=== PATIENT | female | born 1975 | race Caucasian/White ===

== ENCOUNTER → 2019-01-29 | Outpatient (CLI) | payer OTHER ==
[~2019-01-29] MED LIST: ACEBUTCAFT PO; ACET325; ALBU90OI; ALBU90OI INH; AMLO5; AMLO5 PO; ATEN50; ATOR20 PO; Aldactone100 MG PO; BUDE6HFA; CITA20; CLON.5; CLON1; CLON1 PO; CLON2; CODACE30 PO; CONEST.625; CONEST1.25; Citalopram HBr10 MG PO; DIVA500ER; DOXY100; DULO30; DULO30 PO; ESCI20; ESCI20 PO; ESOM20; ESTR2 PO; EZET10; Esgic Tablet1 EACH PO; FURO20; HYDACE5 PO; HYDCHL12.5; HYDMOR2 PO; HYDROCHLOROTHIAZIDE 12.5 MG; IBUHYD; IBUHYD PO; IBUP800 PO; LABE200; LAMO100 PO; LAMO25; LAMO5; LAMO50; LAMO50 PO; LEVFLO500 PO; LEVSOD100; LIOT25; LISI20; LORA1 PO; LOSA50 PO; LOSHYD100 PO; MAGCHL64ER PO; METDOP250; METO100ER PO; METO50ER; METR500; MICARDIS; MULVITMINE; NAPR500 PO; NIFE60ER; NITR100CA PO; OLAN5A; OMEP20ER PO; OMEP40CA12 PO; OMEPRAZOLE MAGN20 MG PO; OXYACE10; OXYACE5T; OXYACE5T PO; OXYACE7.5T PO; PARO10; PARO20; PENVK500 PO; POTCHL20ER; POTCHL20ER PO; PROBIOTIC1 EAC1 PO; PROM25 PO; Percocet 5-3251 EACH PO; Prednisone20 MG PO; Prilosec Otc20 MG PO; QUET100; QUET200 PO; RANI150; RXHYDACE PO; RXLORA1 PO; RXONDA4ODT MM; RXOXYACE PO; RXPROM25S PR; RXTRAM50 PO; SERT50; SILSUL1TC TOP; SPIR50 PO; SUBOXONE 12 MG1 EACH PO; TELM80; TERB250; THEO300ERC PO; TOPI25; TRAZ50; VALS80; VENL75ER; ZOLP10 PO; [UNRECOGNIZED DRUG - CODE]; [UNRECOGNIZED DRUG - OTHER]; [UNRECOGNIZED DRUG - OTHER]
[2019-01-29 18:01] LABS: BASOPHILS ABSOLUTE AUTO 0.08 K/mm3 (0.00-0.23); BASOPHILS PERCENT AUTO 1 % (0-2); EOSINOPHILS ABSOLUTE AUTO 1.24 K/mm3 (0.00-0.68); EOSINOPHILS PERCENT AUTO 9 % (0-6); Hemoglobin 11.7 g/dL (11.5-16.0); IMMATURE GRAN ABSOLUTE AUTO 0.03 K/mm3 (0.00-0.10); IMMATURE GRAN PERCENT AUTO 0 % (0-1); LYMPHOCYTES ABSOLUTE AUTO 4.31 K/mm3 (0.84-5.20); LYMPHOCYTES PERCENT AUTO 31 % (21-46); MONOCYTES ABSOLUTE AUTO 0.64 K/mm3 (0.16-1.47); MONOCYTES PERCENT AUTO 5 % (4-13); Mean Corpuscular HGB 29.6 pg (26.0-34.0); Mean Corpuscular HGB Conc 34.4 g/dL (31.5-36.5); Mean Corpuscular Volume 86 fL (80-100); Mean Platelet Volume 11.1 fL (9.1-12.4); NEUTROPHILS ABSOLUTE AUTO 7.82 K/mm3 (1.96-9.15); NEUTROPHILS PERCENT AUTO 55 % (41-73); Platelet Count 215 K/mm3 (150-400); RDW Coefficient Variation 12.9 % (11.7-14.2); Red Blood Cell Count 3.95 M/mm3 (3.80-5.20); White Blood Cell Count 14.12 K/mm3 (4.00-11.30)
[2019-01-29 18:16] LABS: Anion Gap 12 mmol/L (6-16); Blood Urea Nitrogen 17 mg/dL (8-24); Bun/Creatinine Ratio 12.5 (12.0-20.0); CO2, Blood 30 mmol/L (21-32); Calcium, Blood 8.8 mg/dL (8.5-10.1); Chloride, Blood 96 mmol/L (98-108); Creatinine, Blood 1.36 mg/dL (0.40-1.00); Glomerular Filtration Rate 42 (60-); Glucose, Blood 97 mg/dL (70-99); Sodium, Blood 138 mmol/L (136-145); Troponin I <0.015 ng/mL (0.000-0.040)
== END | disposition home or self-care (01) ==
LOC: LAB EV 17:58 → LAB SHORT 17:58
PROVIDERS: Family Medicine
DX: R07.89 Other chest pain (principal)
CPT/HCPCS: 80048; 84484; 85025; 85379

== ENCOUNTER → 2019-02-13 | Outpatient (CLI) | payer OTHER ==
[2019-02-13 16:33] LABS: Bun/Creatinine Ratio 8.6 (12.0-20.0); Calcium, Blood 8.8 mg/dL (8.5-10.1); Creatinine, Blood 1.05 mg/dL (0.40-1.00); Potassium, Blood 4.3 mmol/L (3.5-5.5)
== END | disposition home or self-care (01) ==
LOC: LAB EV 16:01 → LAB SHORT 16:01
PROVIDERS: Family Medicine
DX: E87.6 Hypokalemia (principal)
CPT/HCPCS: 80048

== ENCOUNTER 2019-03-02 21:14 | Emergency (ER) | payer OTHER ==
[~2019-03-02] VITALS: Ht 165.1 cm; Wt 81.7 kg
[2019-03-02] MEDS ORDERED: FURO20 PO (22:50)
[2019-03-02] MEDS ORDERED: FLUO10 PO (22:51)
[2019-03-02] MEDS ORDERED: HYDCHL25 PO (22:51)
[2019-03-02] MEDS ORDERED: OMEPRAZOLE MAGN20 MG PO (22:51)
[2019-03-02] MEDS ORDERED: OLAN5 PO (22:52)
[2019-03-02] MEDS ORDERED: BUSP15 PO (22:52)
[2019-03-02] MEDS ORDERED: BUDE6HFA INH (22:52)
[2019-03-02] MEDS ORDERED: ALBU90OI61 INH (22:53)
[2019-03-02 23:02] LABS: BASOPHILS PERCENT AUTO 1 % (0-2); EOSINOPHILS ABSOLUTE AUTO 0.76 K/mm3 (0.00-0.68); EOSINOPHILS PERCENT AUTO 6 % (0-6); Hemoglobin 12.2 g/dL (11.5-16.0); IMMATURE GRAN ABSOLUTE AUTO 0.07 K/mm3 (0.00-0.10); IMMATURE GRAN PERCENT AUTO 1 % (0-1); LYMPHOCYTES ABSOLUTE AUTO 5.72 K/mm3 (0.84-5.20); LYMPHOCYTES PERCENT AUTO 43 % (21-46); MONOCYTES ABSOLUTE AUTO 0.62 K/mm3 (0.16-1.47); MONOCYTES PERCENT AUTO 5 % (4-13); Mean Corpuscular HGB 29.8 pg (26.0-34.0); Mean Corpuscular Volume 91 fL (80-100); Mean Platelet Volume 11.5 fL (9.1-12.4); NEUTROPHILS PERCENT AUTO 46 % (41-73); Platelet Count 256 K/mm3 (150-400); RDW Coefficient Variation 13.9 % (11.7-14.2); RDW Standard Deviation 46.5 fL (35.1-46.3); Red Blood Cell Count 4.09 M/mm3 (3.80-5.20); White Blood Cell Count 13.37 K/mm3 (4.00-11.30)
[2019-03-02 23:23] LABS: Alanine Aminotransfer (ALT/SGP 27 U/L (12-78); Albumin/Globulin Ratio 1.2 (0.8-1.8); Alk Phos 75 U/L (50-136); Anion Gap 9 mmol/L (6-16); Aspartate Aminotrans (AST/SGOT 15 U/L (12-37); Bilirubin, Total 0.2 mg/dL (0.1-1.0); Blood Urea Nitrogen 13 mg/dL (8-24); Bun/Creatinine Ratio 17.1 (12.0-20.0); CO2, Blood 26 mmol/L (21-32); Calcium, Blood 9.2 mg/dL (8.5-10.1); Chloride, Blood 106 mmol/L (98-108); Creatinine, Blood 0.76 mg/dL (0.40-1.00); Ethanol (Alcohol), Blood, Med 119 mg/dL; Globulin, Blood 3.4 g/dL (2.2-4.0); Glomerular Filtration Rate >60 (60-); Glucose, Blood 103 mg/dL (70-99); Potassium, Blood 3.1 mmol/L (3.5-5.5); Salicylate <1.7 mg/dL (2.8-20.0); Sodium, Blood 141 mmol/L (136-145); Total Protein, Blood 7.4 g/dL (6.4-8.2)
[2019-03-02 23:38] LABS: Acetaminophen, Random <2.0 ug/mL (10.0-30.0)
[2019-03-03] MEDS ORDERED: OLAN10 PO (00:13)
== END 2019-03-03 00:13 | disposition home or self-care (01) ==
LOC: ER 21:14
PROVIDERS: Emergency Medicine
DX: F32.9 Major depressive disorder, single episode, unspecified (principal); Z88.2 Allergy status to sulfonamides; Z88.8 Allergy status to other drugs, medicaments and biological substances; Z79.899 Other long term (current) drug therapy; K21.9 Gastro-esophageal reflux disease without esophagitis; J44.9 Chronic obstructive pulmonary disease, unspecified; F31.9 Bipolar disorder, unspecified; F17.210 Nicotine dependence, cigarettes, uncomplicated
CPT/HCPCS: 80053; 84443; 85025; G0480

== ENCOUNTER → 2019-06-05 | Outpatient (CLI) | payer OTHER ==
[~2019-06-05] MED LIST changes: +ALBU90OI61 INH; +BUDE6HFA INH; +BUSP15 PO; +FLUO10 PO; +FURO20 PO; +HYDCHL25 PO; +OLAN10 PO; +OLAN5 PO
[2019-06-05 17:22] LABS: BASOPHILS ABSOLUTE AUTO 0.04 K/mm3 (0.00-0.23); BASOPHILS PERCENT AUTO 1 % (0-2); EOSINOPHILS ABSOLUTE AUTO 0.34 K/mm3 (0.00-0.68); EOSINOPHILS PERCENT AUTO 5 % (0-6); Hematocrit 33.8 % (33.0-51.0); Hemoglobin 11.3 g/dL (11.5-16.0); IMMATURE GRAN ABSOLUTE AUTO 0.03 K/mm3 (0.00-0.10); IMMATURE GRAN PERCENT AUTO 0 % (0-1); LYMPHOCYTES ABSOLUTE AUTO 2.52 K/mm3 (0.84-5.20); LYMPHOCYTES PERCENT AUTO 37 % (21-46); MONOCYTES ABSOLUTE AUTO 0.39 K/mm3 (0.16-1.47); MONOCYTES PERCENT AUTO 6 % (4-13); Mean Corpuscular HGB 29.7 pg (26.0-34.0); Mean Corpuscular HGB Conc 33.4 g/dL (31.5-36.5); Mean Corpuscular Volume 89 fL (80-100); Mean Platelet Volume 11.2 fL (9.1-12.4); NEUTROPHILS ABSOLUTE AUTO 3.49 K/mm3 (1.96-9.15); NEUTROPHILS PERCENT AUTO 51 % (41-73); Platelet Count 189 K/mm3 (150-400); RDW Coefficient Variation 14.2 % (11.7-14.2); RDW Standard Deviation 45.9 fL (35.1-46.3); White Blood Cell Count 6.81 K/mm3 (4.00-11.30)
[2019-06-05 17:39] LABS: Alanine Aminotransfer (ALT/SGP 89 U/L (12-78); Albumin, Blood 3.7 g/dL (3.4-5.0); Alk Phos 87 U/L (40-126); Anion Gap 11 mmol/L (6-16); Aspartate Aminotrans (AST/SGOT 59 U/L (12-37); Bilirubin, Total 0.2 mg/dL (0.1-1.0); Blood Urea Nitrogen 17 mg/dL (8-24); Bun/Creatinine Ratio 14.5 (12.0-20.0); CO2, Blood 26 mmol/L (21-32); Calcium, Blood 8.8 mg/dL (8.5-10.1); Chloride, Blood 98 mmol/L (98-108); Creatinine, Blood 1.17 mg/dL (0.40-1.00); Globulin, Blood 3.7 g/dL (2.2-4.0); Glomerular Filtration Rate 50 (60-); Glucose, Blood 110 mg/dL (70-99); Sodium, Blood 135 mmol/L (136-145); Total Protein, Blood 7.4 g/dL (6.4-8.2)
[2019-06-05 17:40] LABS: Troponin I <0.017 ng/mL (0.000-0.040)
== END | disposition home or self-care (01) ==
LOC: LAB SHORT 17:17 → LAB EV 17:17
PROVIDERS: Physician Assistant
DX: R07.9 Chest pain, unspecified (principal)
CPT/HCPCS: 80053; 83690; 84484; 85025

== ENCOUNTER → 2019-07-03 | Outpatient (CLI) | payer OTHER ==
[2019-07-03 15:47] LABS: BASOPHILS ABSOLUTE AUTO 0.07 K/mm3 (0.00-0.23); BASOPHILS PERCENT AUTO 1 % (0-2); EOSINOPHILS ABSOLUTE AUTO 0.55 K/mm3 (0.00-0.68); EOSINOPHILS PERCENT AUTO 6 % (0-6); Hematocrit 31.5 % (33.0-51.0); Hemoglobin 10.5 g/dL (11.5-16.0); IMMATURE GRAN ABSOLUTE AUTO 0.02 K/mm3 (0.00-0.10); IMMATURE GRAN PERCENT AUTO 0 % (0-1); LYMPHOCYTES ABSOLUTE AUTO 3.36 K/mm3 (0.84-5.20); LYMPHOCYTES PERCENT AUTO 37 % (21-46); MONOCYTES ABSOLUTE AUTO 0.44 K/mm3 (0.16-1.47); MONOCYTES PERCENT AUTO 5 % (4-13); Mean Corpuscular HGB 29.5 pg (26.0-34.0); Mean Corpuscular HGB Conc 33.3 g/dL (31.5-36.5); Mean Corpuscular Volume 89 fL (80-100); Mean Platelet Volume 11.6 fL (9.1-12.4); NEUTROPHILS ABSOLUTE AUTO 4.76 K/mm3 (1.96-9.15); NEUTROPHILS PERCENT AUTO 52 % (41-73); Platelet Count 277 K/mm3 (150-400); RDW Coefficient Variation 13.8 % (11.7-14.2); RDW Standard Deviation 44.6 fL (35.1-46.3); Red Blood Cell Count 3.56 M/mm3 (3.80-5.20)
[2019-07-03 15:50] LABS: Bun/Creatinine Ratio 17.2 (12.0-20.0); Calcium, Blood 8.6 mg/dL (8.5-10.1); Creatinine, Blood 1.22 mg/dL (0.40-1.00); Potassium, Blood 4.1 mmol/L (3.5-5.5)
== END | disposition home or self-care (01) ==
LOC: LAB EV 15:35 → LAB SHORT 15:35
PROVIDERS: Physician Assistant Medical
DX: R94.4 Abnormal results of kidney function studies (principal)
CPT/HCPCS: 80048; 85025

== ENCOUNTER 2019-10-27 15:32 | Observation (INO) | payer OTHER ==
[~2019-10-27] VITALS: Ht 165.1 cm; Wt 83.9 kg
[~2019-10-27 15:32] MED LIST changes: +LOSARTAN POTAS100 MG PO
[2019-10-27] MEDS ORDERED: POTCHL20ER PO (16:10)
[2019-10-27] MEDS ORDERED: ALPR1 PO (16:11)
[2019-10-27] MEDS ORDERED: TRAZ50 PO (16:12)
[2019-10-27] MEDS ORDERED: SEROQUEL100 MG PO (16:13)
[2019-10-27] MEDS ORDERED: MINIPRESS2 MG PO (16:13)
[2019-10-27 16:25] LABS: BASOPHILS ABSOLUTE AUTO 0.05 K/mm3 (0.00-0.23); BASOPHILS PERCENT AUTO 1 % (0-2); EOSINOPHILS ABSOLUTE AUTO 0.29 K/mm3 (0.00-0.68); EOSINOPHILS PERCENT AUTO 3 % (0-6); Hematocrit 39.5 % (33.0-51.0); IMMATURE GRAN ABSOLUTE AUTO 0.02 K/mm3 (0.00-0.10); IMMATURE GRAN PERCENT AUTO 0 % (0-1); LYMPHOCYTES ABSOLUTE AUTO 3.71 K/mm3 (0.84-5.20); LYMPHOCYTES PERCENT AUTO 42 % (21-46); MONOCYTES ABSOLUTE AUTO 0.42 K/mm3 (0.16-1.47); MONOCYTES PERCENT AUTO 5 % (4-13); Mean Corpuscular HGB 28.5 pg (26.0-34.0); Mean Corpuscular HGB Conc 32.9 g/dL (31.5-36.5); Mean Corpuscular Volume 87 fL (80-100); Mean Platelet Volume 11.3 fL (9.1-12.4); NEUTROPHILS ABSOLUTE AUTO 4.41 K/mm3 (1.96-9.15); NEUTROPHILS PERCENT AUTO 50 % (41-73); Platelet Count 288 K/mm3 (150-400); RDW Coefficient Variation 14.6 % (11.7-14.2); RDW Standard Deviation 46.5 fL (35.1-46.3); Red Blood Cell Count 4.56 M/mm3 (3.80-5.20)
[2019-10-27 16:42] LABS: Acetaminophen, Random <2.0 ug/mL (10.0-30.0); Alanine Aminotransfer (ALT/SGP 89 U/L (12-78); Albumin, Blood 4.2 g/dL (3.4-5.0); Albumin/Globulin Ratio 1.1 (0.8-1.8); Alk Phos 89 U/L (50-136); Anion Gap 11 mmol/L (6-16); Aspartate Aminotrans (AST/SGOT 51 U/L (12-37); Bilirubin, Total 0.1 mg/dL (0.1-1.0); Blood Urea Nitrogen 14 mg/dL (8-24); Bun/Creatinine Ratio 16.2 (12.0-20.0); CO2, Blood 21 mmol/L (21-32); Calcium, Blood 8.9 mg/dL (8.5-10.1); Chloride, Blood 112 mmol/L (98-108); Creatinine, Blood 0.87 mg/dL (0.40-1.00); Ethanol (Alcohol), Blood, Med 166 mg/dL; Globulin, Blood 3.7 g/dL (2.2-4.0); Glomerular Filtration Rate >60 (60-); Glucose, Blood 93 mg/dL (70-99); Potassium, Blood 3.5 mmol/L (3.5-5.5); Salicylate <1.7 mg/dL (2.8-20.0); Sodium, Blood 144 mmol/L (136-145); Total Protein, Blood 7.9 g/dL (6.4-8.2)
[2019-10-27 17:06] LABS: Source, Urine Clean Catch
[2019-10-27 17:18] LABS: Bilirubin, Urine Neg (Neg); Blood, Urine Neg (Neg); Glucose Qualitative, Urine Neg (Neg); Ketones, Urine Neg (Neg); Leukocyte Esterase, Urine Neg (Neg); Nitrite, Urine Neg (Neg); Protein, Urine Neg (Neg); Specific Gravity, Urine 1.005 (1.003-1.022); Urobilinogen, Urine NORM (Normal)
[2019-10-27 17:34] LABS: U Amphetamine Screen Not Detected; U Barbituate Screen Not Detected; U Benzodiazapine Screen Not Detected; U Buprenorphine Screen Not Detected; U Cannabinoids Screen DETECTED; U Cocaine Screen Not Detected; U Methadone Screen Not Detected; U Methamphetamine Screen Not Detected; U Opiates Screen Not Detected; U Oxycodone Screen Not Detected; U Phencyclidine Screen Not Detected; U Propoxyphene Screen Not Detected
[2019-10-27 17:35] LABS: Appearance, Urine Clear (Clear); Color, Urine Pale Yellow (P-Yellow)
[2019-10-27] MEDS ORDERED: NEURONTIN300 MG PO (18:05)
[2019-10-27] MEDS ORDERED: QUET300 PO (18:05)
[2019-10-27] MEDS ORDERED: Buspirone HCl15 MG PO (18:06)
[2019-10-27] MEDS ORDERED: POTASSIUM CHLO20 ME1 PO (18:06)
[2019-10-28] MEDS ORDERED: HYDCHL25 PO (06:58)
== END 2019-10-28 12:45 | disposition home or self-care (01) ==
LOC: ER 15:32 → EOR 15:33
PROVIDERS: Physician Assistant; ADMIT Emergency Medicine
DX: F31.4 Bipolar disorder, current episode depressed, severe, without psychotic features (principal); F12.10 Cannabis abuse, uncomplicated; F11.10 Opioid abuse, uncomplicated; F10.10 Alcohol abuse, uncomplicated; R45.851 Suicidal ideations; F17.210 Nicotine dependence, cigarettes, uncomplicated; I11.0 Hypertensive heart disease with heart failure; I50.9 Heart failure, unspecified; J43.9 Emphysema, unspecified; F43.10 Post-traumatic stress disorder, unspecified; F41.9 Anxiety disorder, unspecified; G43.909 Migraine, unspecified, not intractable, without status migrainosus; E78.5 Hyperlipidemia, unspecified; E03.9 Hypothyroidism, unspecified; Z88.1 Allergy status to other antibiotic agents; Z88.2 Allergy status to sulfonamides; Z88.8 Allergy status to other drugs, medicaments and biological substances; Z79.899 Other long term (current) drug therapy; Y90.6 Blood alcohol level of 120-199 mg/100 ml
CPT/HCPCS: 36415; 80053; 81003; 81025; 84443; 85025; 96372; 99285; G0378; G0480; J1885; Q0163; Q3014

== ENCOUNTER → 2020-05-21 | Outpatient (CLI) | payer OTHER ==
[~2020-05-21] MED LIST changes: +ALPR.5 PO; +AMLODIPINE BESYL5 MG PO; +Ativan1 MG SL; +BUTALB-ACETAMI1 EAC5 PO; +Buspirone HCl15 MG PO; +CLON.1 PO; +CYCL10 PO; -FLUO10 PO; +Fluoxetine HCl20 M1 PO; +GABA300 PO; +Hydroxyzine HCl50 MG PO; +NEURONTIN300 MG PO; +POTASSIUM CHLO20 ME1 PO; +PRAZ5 PO; +QUET300 PO; +SEROQUEL100 MG PO; +TRAZ50 PO; +Temazepam15 MG PO; +VRAYLAR1.5 MG PO; +ZOFRAN8 MG PO
[2020-05-21 16:08] LABS: Source, Urine Clean Catch
[2020-05-21 16:23] LABS: BASOPHILS ABSOLUTE AUTO 0.06 K/mm3 (0.00-0.23); BASOPHILS PERCENT AUTO 1 % (0-2); EOSINOPHILS ABSOLUTE AUTO 0.29 K/mm3 (0.00-0.68); EOSINOPHILS PERCENT AUTO 3 % (0-6); Hematocrit 34.7 % (33.0-51.0); Hemoglobin 11.8 g/dL (11.5-16.0); IMMATURE GRAN ABSOLUTE AUTO 0.03 K/mm3 (0.00-0.10); IMMATURE GRAN PERCENT AUTO 0 % (0-1); LYMPHOCYTES ABSOLUTE AUTO 2.37 K/mm3 (0.84-5.20); LYMPHOCYTES PERCENT AUTO 23 % (21-46); MONOCYTES ABSOLUTE AUTO 0.61 K/mm3 (0.16-1.47); MONOCYTES PERCENT AUTO 6 % (4-13); Mean Corpuscular HGB 30.8 pg (26.0-34.0); Mean Corpuscular Volume 91 fL (80-100); Mean Platelet Volume 11.8 fL (9.1-12.4); NEUTROPHILS ABSOLUTE AUTO 7.02 K/mm3 (1.96-9.15); NEUTROPHILS PERCENT AUTO 68 % (41-73); Platelet Count 255 K/mm3 (150-400); RDW Coefficient Variation 14.1 % (11.7-14.2); RDW Standard Deviation 46.8 fL (35.1-46.3); Red Blood Cell Count 3.83 M/mm3 (3.80-5.20); White Blood Cell Count 10.38 K/mm3 (4.00-11.30)
[2020-05-21 16:34] LABS: Albumin, Blood 4.6 g/dL (3.4-5.0); Albumin/Globulin Ratio 1.2 (0.8-1.8); Bilirubin, Total 0.4 mg/dL (0.1-1.0); Bun/Creatinine Ratio 11.4 (12.0-20.0); Creatinine, Blood 4.74 mg/dL (0.40-1.00); Globulin, Blood 3.7 g/dL (2.2-4.0); Potassium, Blood 4.2 mmol/L (3.5-5.5); Total Protein, Blood 8.3 g/dL (6.4-8.2)
[2020-05-21 16:36] LABS: Bacteria Not Seen /hpf; Mucus Light (0-Heavy); Red Blood Cells, Urine 0-2 /hpf (0-2); Squamous Epithelial Cells Few /hpf (Few)
== END | disposition home or self-care (01) ==
LOC: LAB EV 16:04 → LAB SHORT 16:04
PROVIDERS: Physician Assistant
DX: R06.00 Dyspnea, unspecified (principal); R55 Syncope and collapse; R31.9 Hematuria, unspecified
CPT/HCPCS: 80053; 81015; 83880; 85025; 85379; 87086

== ENCOUNTER → 2020-06-08 | Outpatient (CLI) | payer OTHER ==
[2020-06-08 19:06] LABS: Protein, Urine Quantitative 10.7 mg/dL (0.0-11.9)
[2020-06-08 19:08] LABS: Microalbumin, Urine Quant. 21.3 mg/L (0.000-20.000)
== END | disposition home or self-care (01) ==
LOC: LAB SHORT 15:13 → LAB 15:13
PROVIDERS: Internal Medicine Nephrology
DX: N18.3 Chronic kidney disease, stage 3 (moderate) (principal); D63.1 Anemia in chronic kidney disease; N25.81 Secondary hyperparathyroidism of renal origin; E55.9 Vitamin D deficiency, unspecified; E78.00 Pure hypercholesterolemia, unspecified; D51.8 Other vitamin B12 deficiency anemias; D52.8 Other folate deficiency anemias; D50.9 Iron deficiency anemia, unspecified; R76.9 Abnormal immunological finding in serum, unspecified; R94.5 Abnormal results of liver function studies; R94.6 Abnormal results of thyroid function studies
CPT/HCPCS: 81050; 82043; 84156; 84300; 86335

== ENCOUNTER 2020-07-25 20:37 | Inpatient (IN) | payer OTHER ==
[~2020-07-25] VITALS: Ht 170.2 cm; Wt 92.1 kg
[2020-07-25 20:53] LABS: BASOPHILS ABSOLUTE AUTO 0.04 K/mm3 (0.00-0.23); BASOPHILS PERCENT AUTO 1 % (0-2); EOSINOPHILS ABSOLUTE AUTO 0.18 K/mm3 (0.00-0.68); EOSINOPHILS PERCENT AUTO 2 % (0-6); Hematocrit 37.3 % (33.0-51.0); Hemoglobin 12.4 g/dL (11.5-16.0); IMMATURE GRAN ABSOLUTE AUTO 0.02 K/mm3 (0.00-0.10); IMMATURE GRAN PERCENT AUTO 0 % (0-1); LYMPHOCYTES ABSOLUTE AUTO 3.69 K/mm3 (0.84-5.20); LYMPHOCYTES PERCENT AUTO 42 % (21-46); MONOCYTES ABSOLUTE AUTO 0.48 K/mm3 (0.16-1.47); MONOCYTES PERCENT AUTO 5 % (4-13); Mean Corpuscular HGB 30.4 pg (26.0-34.0); Mean Corpuscular HGB Conc 33.2 g/dL (31.5-36.5); Mean Corpuscular Volume 91 fL (80-100); Mean Platelet Volume 11.2 fL (9.1-12.4); NEUTROPHILS ABSOLUTE AUTO 4.46 K/mm3 (1.96-9.15); NEUTROPHILS PERCENT AUTO 50 % (41-73); Platelet Count 233 K/mm3 (150-400); RDW Coefficient Variation 15.8 % (11.7-14.2); RDW Standard Deviation 52.1 fL (35.1-46.3); Red Blood Cell Count 4.08 M/mm3 (3.80-5.20); White Blood Cell Count 8.87 K/mm3 (4.00-11.30)
[2020-07-25] MEDS ORDERED: Ativan1 MG SL (21:06)
[2020-07-25 21:10] LABS: Alanine Aminotransfer (ALT/SGP 60 U/L (12-78); Albumin, Blood 3.4 g/dL (3.4-5.0); Albumin/Globulin Ratio 0.8 (0.8-1.8); Alk Phos 91 U/L (50-136); Anion Gap 14 mmol/L (6-16); Aspartate Aminotrans (AST/SGOT 55 U/L (12-37); Bilirubin, Total 0.3 mg/dL (0.1-1.0); Blood Urea Nitrogen 6 mg/dL (8-24); Bun/Creatinine Ratio 5.9 (12.0-20.0); CO2, Blood 21 mmol/L (21-32); Calcium, Blood 8.6 mg/dL (8.5-10.1); Chloride, Blood 105 mmol/L (98-108); Creatinine, Blood 1.01 mg/dL (0.40-1.00); Ethanol (Alcohol), Blood, Med 165 mg/dL; Glomerular Filtration Rate >60 (60-); Glucose, Blood 135 mg/dL (70-99); Potassium, Blood 2.9 mmol/L (3.5-5.5); Salicylate <1.7 mg/dL (2.8-20.0); Sodium, Blood 140 mmol/L (136-145); Total Protein, Blood 7.4 g/dL (6.4-8.2)
[2020-07-25 21:16] LABS: Acetaminophen, Random <2.0 ug/mL (10.0-30.0)
[2020-07-25] MEDS ORDERED: QUET300 PO (21:42)
[2020-07-25] MEDS ORDERED: PRAZ5 PO (21:44)
[2020-07-26 00:46] LABS: U Amphetamine Screen Not Detected; U Barbituate Screen Not Detected; U Benzodiazapine Screen DETECTED; U Buprenorphine Screen Not Detected; U Cannabinoids Screen DETECTED; U Cocaine Screen Not Detected; U Methadone Screen Not Detected; U Methamphetamine Screen DETECTED; U Opiates Screen Not Detected; U Oxycodone Screen Not Detected; U Phencyclidine Screen Not Detected; U Propoxyphene Screen Not Detected
--- NOTE | 2020-07-26 01:18 | NUR ---
ARRIVAL TO ICU 0000 - PT ARRIVES FROM ED TO ICU AT THIS TIME. SHE IS SOMNOLENT, AWAKENS SUDDENLY, AND SPEAKS IN GARBLED SPEECH THAT IS INCOMPREHENSIBLE. DENIES PAIN WHEN ASKED. [facility], HR 100-110. BP WNL; SEE TRENDS. SPO2 98% ON RA. LUNG SOUNDS CLEAR. MOE CATHETER INSERTED AT ARRIVAL; URINE TOX SENT TO LAB. PT PLACED IN PAPER SCRUBS AND PLACED ON HIGH SUICIDE WATCH WITH CAMERAS AND 1:1 SITTER. LACERATION TO L FOREARM WITH 6 SUTURES PRESENT; PHOTOS OBTAINED. WILL CONTINUE TO MONITOR.
[2020-07-26 03:37] LABS: BASOPHILS ABSOLUTE AUTO 0.02 K/mm3 (0.00-0.23); BASOPHILS PERCENT AUTO 0 % (0-2); EOSINOPHILS ABSOLUTE AUTO 0.07 K/mm3 (0.00-0.68); EOSINOPHILS PERCENT AUTO 1 % (0-6); Hematocrit 37.2 % (33.0-51.0); Hemoglobin 12.2 g/dL (11.5-16.0); IMMATURE GRAN ABSOLUTE AUTO 0.04 K/mm3 (0.00-0.10); IMMATURE GRAN PERCENT AUTO 1 % (0-1); LYMPHOCYTES ABSOLUTE AUTO 2.76 K/mm3 (0.84-5.20); LYMPHOCYTES PERCENT AUTO 33 % (21-46); MONOCYTES ABSOLUTE AUTO 0.64 K/mm3 (0.16-1.47); MONOCYTES PERCENT AUTO 8 % (4-13); Mean Corpuscular HGB 30.3 pg (26.0-34.0); Mean Corpuscular HGB Conc 32.8 g/dL (31.5-36.5); Mean Corpuscular Volume 92 fL (80-100); Mean Platelet Volume 10.8 fL (9.1-12.4); NEUTROPHILS ABSOLUTE AUTO 4.79 K/mm3 (1.96-9.15); NEUTROPHILS PERCENT AUTO 58 % (41-73); Platelet Count 226 K/mm3 (150-400); RDW Coefficient Variation 15.7 % (11.7-14.2); RDW Standard Deviation 52.9 fL (35.1-46.3); Red Blood Cell Count 4.03 M/mm3 (3.80-5.20); White Blood Cell Count 8.32 K/mm3 (4.00-11.30)
--- NOTE | 2020-07-26 03:59 | NUR ---
HANDOFF BEDSIDE, HANDOFF REPORT GIVEN TO MAGDA Samuel RN. PT SLEEPING. VSS.
--- NOTE | 2020-07-26 04:00 | NUR ---
ASSUMED CARE OF PT, SHE HAS PERIODS OF SOMNOLENCE FOLLOWED BY SUDDEN PERIODS OF WAKENING DURING WHICH MUMBLED SPEECH IS NOTED, UNABLE TO UNDERSTAND WORDS AT THIS TIME. SINUS TACH ON MONITOR, PRESSURES MAINTAINING. SATS UPPER 90S ON ROOM AIR, RESP RATE TEENS. ALIYAH VEST RESTRAINT AND BILAT WRIST RESTRAINTS IN PLACE. AT TIMES WHEN PT'S EYES ARE OPEN, IT DOES APPEAR THAT SHE IS HAVING VISUAL HALLUCINATIONS SHE TRACKS MOVEMENT IN ROOM THAT IS NOT VISIBLE TO THIS RN.
[2020-07-26 04:02] LABS: Alanine Aminotransfer (ALT/SGP 56 U/L (12-78); Albumin, Blood 3.5 g/dL (3.4-5.0); Alk Phos 91 U/L (50-136); Anion Gap 9 mmol/L (6-16); Aspartate Aminotrans (AST/SGOT 41 U/L (12-37); Bilirubin, Total 0.4 mg/dL (0.1-1.0); Blood Urea Nitrogen 5 mg/dL (8-24); Bun/Creatinine Ratio 6.3 (12.0-20.0); CO2, Blood 24 mmol/L (21-32); Calcium, Blood 8.7 mg/dL (8.5-10.1); Chloride, Blood 109 mmol/L (98-108); Creatinine, Blood 0.79 mg/dL (0.40-1.00); Globulin, Blood 3.6 g/dL (2.2-4.0); Glomerular Filtration Rate >60 (60-); Glucose, Blood 118 mg/dL (70-99); Potassium, Blood 3.2 mmol/L (3.5-5.5); Sodium, Blood 142 mmol/L (136-145); Total Protein, Blood 7.1 g/dL (6.4-8.2)
--- NOTE | 2020-07-26 06:22 | NUR ---
PT CONTINUES SOMNOLENT WITH SUDDEN PERIODS OF WAKENING DURING WHICH TIMES SHE LIFTS BUTTOCKS AND SCOOTS AROUND BED, APPEARS TO WATCH MOVEMENT IN ROOM, AND MUMBLE INCOHERENTLY. SHE RARELY MAKES EYE CONTACT WITH THIS RN AT TIMES OF INCREASED WAKEFULNESS. SINUS TACH CONTINUES, PRESSURES REMAIN STABLE. SHE CONTINUES TO MAINTAIN SATS UPPER 90S ON ROOM AIR, RESP RATE TEENS. MOE REMAINS IN PLACE DRAINING YELLOW URINE TO GRAVITY, INCREASING SEDIMENT IS NOTED IN TUBING. AM POTASSIUM NOTED AT 3.[address] RES[address] PHONED TO DR CASTRO, ORDERED IV POTASSIUM IS CURRENTLY INFUSING.
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
[2020-07-26 10:16] LABS: Source, Urine Catheter
[2020-07-26 10:19] LABS: Appearance, Urine Clear (Clear); Bilirubin, Urine Neg (Neg); Blood, Urine Neg (Neg); Color, Urine Yellow (P-Yellow); Glucose Qualitative, Urine Neg (Neg); Ketones, Urine Neg (Neg); Leukocyte Esterase, Urine 1+ (Neg); Nitrite, Urine Neg (Neg); Protein, Urine 2+ (Neg); Specific Gravity, Urine 1.025 (1.003-1.022); Urobilinogen, Urine NORM (Normal)
[2020-07-26 10:35] LABS: Amorphous Light (0-Heavy); Bacteria Mod /hpf; Red Blood Cells, Urine 0-2 /hpf (0-2); Squamous Epithelial Cells Few /hpf (Few)
--- NOTE | 2020-07-26 11:32 | NUR ---
PT IS UNABLE TO ANSWER QUESTIONS AT THIS TIME, WILL CONTINUE TO MONITOR AND ASSESS THE PT.
--- NOTE | 2020-07-26 13:57 | NUR ---
PT UPDATE... PT WOKE UP AND WAS VERY AGITATED, PT BEGAN TO KICK HER LEGS VIGORUSLY AROUND THE BED AND WAS ATTEMPTING TO CLIMB OUT OF BED. PT WAS ABLE TO TELL THIS RN THAT SHE WAS IN [facility] AND THAT SHE HAD TRIED TO "KILL MYSELF." PT VERBALIZED THAT SHE NO LONGER HAD THESE FEELINGS OF WANTING TO END HER LIFE AND THAT SHE DID NOT HAVE A PLAN. PT CONTINUES TO KICK HER LEGS AROUND, THIS SEEMS TO INCREASE HER AGITATION, PT TOLD THIS RN THAT SHE HAS RESTLESS LEG SYNDROME AND "ITS REALLY BAD RIGHT NOW." THE PROVIDER WAS CALLED AND UPDATED ON PT'S CURRENT STATE AND LAB/UA RESULTS. NEW ORDERS OBTAINED FOR ANTIBIOTICS, AND HYDROXIZINE PO. PT HAS HAD TEARFUL MOMENTS BUT IT IS HARD TO UNDERSTAND EXACTLY WHAT SHE IS SAYING BECAUSE HER SPEECH IS STILL SOMEWHAT GARBLED. WILL CONTINUE TO MONITOR.
[2020-07-26 13:59] LABS: Magnesium, Blood 2.2 mg/dL (1.6-2.4); Potassium, Blood 3.6 mmol/L (3.5-5.5)
--- NOTE | 2020-07-26 14:04 | NUR ---
PT VERBALIZES THAT SHE DID ATTEMPT TO TAKE HER LIFE BUT NO LONGER HAS ANY THOUGHTS OR PLANS OF ATTEMPTING SUICIDE AT THIS TIME.
--- NOTE | 2020-07-26 15:26 | NUR ---
PT UPDATE.... PT HAS INCREASING AGITATION, INCREASED TREMORS NOTED TO THE PT'S HANDS/ARMS. PT'S BP IS TRENDING UP WITH THE AGIATION. PT IS BECOMING INCREASINGLY EMOTIONAL/TEARFUL BUT HARD TO UNDERSTAND DUE TO THE GARBLED SPEECH. PER TIRE CENTER SUPERVISOR THE PT STATED "WHERE DID THEY GO?" WHEN THE TIRE CENTER SUPERVISOR ASKED WHO "THEY" WHERE AND REORIENTED THE PT THE PT THEN SAID "OH I GUESS I WAS JUST HALLUCINATING." WILL CONTINUE TO MONITOR.
--- NOTE | 2020-07-26 18:22 | NUR ---
SHIFT SUMMARY... PT'S AGITATION AND CONFUSION CONTINUES TO INCREASE T/O SHIFT. PROVIDER IS AWARE, CWIA PROTOCOL ORDERS OBTAINED. PT HAS BEEN HYPERTENSIVE OFF AND ON T/O THIS SHIFT. CWIA HAS BEEN 15-17. IV ATIVAN HAS BEEN GIVEN PER ORDERS, PT STILL CONTINUES TO BE AGITATED, PULL AT THE RESTRAINTS AND IV TUBES/MOE. PROVIDER CALLED AGAIN AND NEW ORDER FOR PRECEDEX DRIP OBTAINED. PT WAS ALSO GIVEN IV HYDRALAZINE FOR HYPERTENSION, SHE RESPONDED WELL TO THIS. THIS RN SPOKE WITH THE PT'S S.O. MIREILLE, SHE STATED THAT THE PT DRINKS 0.5-1 PINT OF WHISKY A DAY WELL 4-6 24 OZ MIKES HARDER LEMONAIDES. PT'S UA WAS SENT FOR C&S EMPERIC ROCEPHIN WAS STARTED PER ORDERS UNTIL CULTURES COME BACK. CONSULT WAS PLACED FOR DR. SALAS AND 2MD HOLD OBTAINED. PT REMAINS ON RA WITH O2 SATS >92%. PT ALSO REMAINS ON 1:1 HIGH RISK SUICIDE AND REMOTE VIEWING. PT'S QTc IS CURRENTLY: 0.506 AN IMPROVEMENT FROM THIS AM WHEN IT WAS 0.52. WILL CONTINUE TO MONITOR UNTIL REPORT IS GIVEN TO ONCOMING RN.
--- NOTE | 2020-07-26 19:21 | NUR ---
ASSUMPTION OF CARE PT LYING IN BED, MILDLY RESTLESS, PRECEDEX RECENTLY STARTED ON PREVIOUS SHIFT. O2 SATURATIONS> 95% ON RA, MONITOR SHOWS SINUS RHYTHM WITH HR 90'S-110, HYPERTENSIVE WITH SBP 150'S-160'S. PT IN ALIYHA VEST AND BILAT SOFT WRIST TO PROTECTS LINES/CORDS AND PREVENT FALLS, PER REPORT FROM DAYSHIFT PT VERY IMPULSIVE AND MADE SEVERAL ATTEMPTS TO GET OUT OF BED. MOE IN PLACE DRAINING CLOUDY YELLOW URINE. BANANA BAD INF @ 200ml/HR, PRECEDEX INF @ 13.8ml/hr. ONE ON ONE SITTER PRESENT FOR CONTINUOUS VISUAL MONITORING.
--- NOTE | 2020-07-26 20:00 | NUR ---
COLUMBIA SUICIDE SCALE ASSESSMENT PT UNABLE TO ANSWER QUESTIONS AT THIS TIME DUE TO SEDATION ON PRECEDEX. PT RESTING IN BED, AROUSES TO VERBAL AND NOXIOUS STIMULI. 1:1 SITTER PRESENT OUTSIDE ROOM FOR CONTINUOUS MONITORING.
--- NOTE | 2020-07-26 22:14 | NUR ---
PT CONTINUES TO BE AROUSABLE TO VERBAL STIMULI, ASKED PT IF SHE KNEW WHERE SHE WAS, PT STS "YES" BUT WAS UNABLE TO STATE LOCATION. PT CONTINUES TO MAKE MINIMAL SHIFTS/REPOSITIONS IN BED. PRECEDEX CONTINUES OT INFUSE, 1:1 SITTER PRESENT.
[2020-07-27 03:34] LABS: BASOPHILS ABSOLUTE AUTO 0.05 K/mm3 (0.00-0.23); BASOPHILS PERCENT AUTO 1 % (0-2); EOSINOPHILS ABSOLUTE AUTO 0.51 K/mm3 (0.00-0.68); EOSINOPHILS PERCENT AUTO 6 % (0-6); IMMATURE GRAN ABSOLUTE AUTO 0.02 K/mm3 (0.00-0.10); IMMATURE GRAN PERCENT AUTO 0 % (0-1); LYMPHOCYTES ABSOLUTE AUTO 3.05 K/mm3 (0.84-5.20); LYMPHOCYTES PERCENT AUTO 34 % (21-46); MONOCYTES PERCENT AUTO 5 % (4-13); Mean Corpuscular HGB 30.5 pg (26.0-34.0); Mean Corpuscular HGB Conc 32.4 g/dL (31.5-36.5); Mean Corpuscular Volume 94 fL (80-100); Mean Platelet Volume 11.2 fL (9.1-12.4); NEUTROPHILS ABSOLUTE AUTO 4.94 K/mm3 (1.96-9.15); NEUTROPHILS PERCENT AUTO 55 % (41-73); Platelet Count 223 K/mm3 (150-400); RDW Coefficient Variation 15.8 % (11.7-14.2); RDW Standard Deviation 54.5 fL (35.1-46.3); Red Blood Cell Count 3.94 M/mm3 (3.80-5.20); White Blood Cell Count 8.97 K/mm3 (4.00-11.30)
[2020-07-27 03:53] LABS: Alanine Aminotransfer (ALT/SGP 68 U/L (12-78); Albumin/Globulin Ratio 0.9 (0.8-1.8); Alk Phos 85 U/L (50-136); Anion Gap 6 mmol/L (6-16); Aspartate Aminotrans (AST/SGOT 71 U/L (12-37); Bilirubin, Total 0.3 mg/dL (0.1-1.0); Blood Urea Nitrogen 5 mg/dL (8-24); Bun/Creatinine Ratio 6.9 (12.0-20.0); CO2, Blood 23 mmol/L (21-32); Calcium, Blood 7.9 mg/dL (8.5-10.1); Chloride, Blood 109 mmol/L (98-108); Creatinine, Blood 0.72 mg/dL (0.40-1.00); Globulin, Blood 3.5 g/dL (2.2-4.0); Glomerular Filtration Rate >60 (60-); Glucose, Blood 120 mg/dL (70-99); Potassium, Blood 3.4 mmol/L (3.5-5.5); Sodium, Blood 138 mmol/L (136-145); Total Protein, Blood 6.5 g/dL (6.4-8.2)
--- NOTE | 2020-07-27 07:17 | NUR ---
SHIFT SUMMARY NO ACUTE CHANGES THIS SHIFT, PT SLEPT WELL T/O NIGHT. PRECEDEX TITRATED TO 0.3mcg/kg/hr, PT BECAME MORE ALERT AND ORIENTED TO SELF, KNEW SHE WAS IN THE HOSPITAL BUT THOUGH SHE WAS IN [facility], KNEW SHE TOOK TOO MANY PILLS BUT HAD NO RECOLLECTION OF HOW SHE ARRIVED TO THE HOSPITAL, CIWA 1 R/T MILD NAUSEA. MORNING LAB SHOWED POTASSIUM OF 3.4, ORDER FOR 20meq KCL IV x1. HYPERTENSION NOTED THIS SHIFT, MEDICATED WITH 20MG HYDRALAZINE x1. 1:1 REMAINED AT ROOM T/O SHIFT. REPORT GIVEN TO WANDA ALFRED.
--- NOTE | 2020-07-27 09:52 | NUR ---
AM NOTE... ASSUMED CARE OF PT APROX 0700, PT IS A&Ox4 CURRENLTY ON PRECEDEX AT 0.3 MCG/KG/HR, PT WAKES EASILY AND ANSWERS QUESTIONS APPROPRIATELY, PT SEEMS A LITTLE ANXIOUS BUT NOT AGRESSIVE LIKE SHE WAS YESTERDAY, PT IS NOT PULLING ON LINES OR HER MOE AND IS NOT ATTEMPTING TO CLIMB OUT OF BED. PT STATES THAT SHE IS NOT SUICIDAL AND DOES NOT HAVE ANY PLANS TO HARM HERSELF OR OTHERS. PT IS TEARFUL AT TIMES WELL THIS AM. L/S CLEAR T/O ON RA. BT PRESENT PT ASKING ABOUT BREAKFAST, DIET WAS ORDERED AT THIS TIME. NO EDEMA NOTED ON ASSESSMENT. CALL LIGHT IN REACH, SITTER AT THE BEDSIDE WILL CONTINUE TO MONITOR.
--- NOTE | 2020-07-27 14:01 | NUR ---
Interview atttemped for safety Plan 1000. Pt was cooperative, but kept losing train of thought on what she was rlaying. Pt was unsure how she got to hosptial, and affirmed she had OD'd. She was concerned her 15 y/o daughter had found her, but did not know. She did report that saskia,, "I remember she (saskia) was saying bad things to me". 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 Interview was delayed to allow patient to eat breakfast and rest. Will return in afternoon.
--- NOTE | 2020-07-27 17:29 | NUR ---
Initial spiritual care note: uLz was tired. Visit kept short. She tells me she recently lost her favorite [facility] alcohol [facility] drug counselor and "It's just too much to think about starting all over with someone new." "I have impulse control issues." She has two daughters and a partner she loves. She admits she made a mistake trying to end her life. She is mostly worried that "everyone is mad at me." Quite quickly she told me she was now too tired to talk. Visit ended at that point. I will remain available.
--- NOTE | 2020-07-27 18:20 | NUR ---
SHIFT SUMMARY... PT'S HIGH RISK SUICIDE WAS D/C'D APROX [address] SALAS PT'S 2MD HOLD STILL IN EFFECT. PT IS VERY EMOTIONAL AND TEARFUL ABOUT NOT BEING ABLE TO D/C HOME AT THIS TIME. PT HAS BEEN SLIGHTLY HYPERTENSIVE THIS SHIFT, PT WAS STARTED ON METOPROLOL PER PROVIDER THIS AM. PT'S OTHER VS STABLE T/O SHIFT. PT'S S.O. WAS AT THE BEDSIDE APROX 1 HOUR THIS AM. PT'S MOE PATENT AND DRAINING YELLOW URINE WITH SOME SEDIMENT TO GRAVITY. PT HAS BEEN ALLOWED TO MAKE A FEW PHONE CALLS TO FAMILY AFTER THE HOLD WAS DROPPED. CALL LIGHT IN REACH WILL CONTINUE TO MONITOR.
--- NOTE | 2020-07-27 19:30 | NUR ---
ASSUMED PT CARE REPORT AND BEDSIDE ROUNDING WITH ROMERO ALFRED AT 1910. ASSUMED PT CARE. PT ALERT AND ORIENTED. SITTING UP IN BED WATCHING TV. PT PROVIDED WITH GOWN PER REQUEST (SHE IS NO LONGER ON SUICIDE PRECATIONS). PT LUNG SOUNDS ARE CLEAR, SATS >92% ON RA. DENIES SOB. PT ON AUTOMOTIVE ACCESSORY INSTALLER HR 90S, SINUS. ABD SOFT AND NON-TENDER, GOOD APPETITE. PT DENIES NAUSEA. PATENT MOE DRAINING YELLOW URINE. SKIN C/D/I. LAC TO LEFT FA WITH SUTURES NOTED, NEW TEGADERM PLACED. DRESSINGS TO IVS CHANGED. 18G TO LEFT AC, WNL, 20G TO RIGHT FA, WNL. BANANA BAG INFUSING @ 200ML/HR (MAINT FLUIDS TO RESUME AFTER). PT DENIES PAIN, DENIES SI. BP WNL. SEE FULL SHIFT ASSESSMENT.
[2020-07-28 04:16] LABS: Alanine Aminotransfer (ALT/SGP 89 U/L (12-78); Albumin/Globulin Ratio 0.9 (0.8-1.8); Alk Phos 88 U/L (50-136); Anion Gap 8 mmol/L (6-16); Aspartate Aminotrans (AST/SGOT 99 U/L (12-37); Bilirubin, Total 0.3 mg/dL (0.1-1.0); Blood Urea Nitrogen 7 mg/dL (8-24); CO2, Blood 23 mmol/L (21-32); Calcium, Blood 8.2 mg/dL (8.5-10.1); Chloride, Blood 108 mmol/L (98-108); Creatinine, Blood 0.87 mg/dL (0.40-1.00); Globulin, Blood 3.5 g/dL (2.2-4.0); Glomerular Filtration Rate >60 (60-); Glucose, Blood 114 mg/dL (70-99); Potassium, Blood 3.8 mmol/L (3.5-5.5); Sodium, Blood 139 mmol/L (136-145); Total Protein, Blood 6.5 g/dL (6.4-8.2)
--- NOTE | 2020-07-28 06:14 | NUR ---
SHIFT SUMMARY PT REMAINED ALERT AND ORIENTED. CIWA <8 THROUGHOUT SHIFT. PT ON RA, SATS >92%. PT DENIES SOB. LUNG SOUNDS CLEAR. FICTION AND NONFICTION PROSE WRITER SHOWS NSR-ST. PT DENIES CP. BP STABLE, PT REQUIRED HYDRALAZINE TWICE DURING SHIFT FOR SBP >160. PT HAD [place], MEDICATED WITH ADVIL. PT TOLERATES PO. BS WNL. DENIES NAUSEA. DENIES SI. ABHI WEBB THIS AM. 18G TO LEFT AC NOTED, DRESSING C/D/I. 20G TO RIGHT FA WITH D51/2NS c 20MEQ KCL INFUSING @ 75ML/HR. PT MOVES ALL EXTREMITIES. PT COULD STATUS CHANGE TODAY. WILL REPORT TO ONCOMING RN.
--- NOTE | 2020-07-28 07:51 | NUR ---
ASSUMED CARE RECEIVED REPORT FROM AUBRIE BAKER. PT IS IN BED COMPLAINING OF HEADACHE. SHE IS ALERT AND ORIENTED X 4, SHE APPEARS DEPRESSED. STABLE VITALS, WITH ELEVATED BP - 164/104. PT IS IN SINUS RHYTHM RATE OF 90. ROOM AIR. BED IS LOW AND LOCKED. CALL LIGHT WITHIN REACH.
--- NOTE | 2020-07-28 09:56 | NUR ---
UPDATE PT VERY TEARFUL, SLIGHTLY AGITATED, AND SAD THAT SHE IS HERE. SHE REALLY WANTS TO LEAVE, BUT AFTER INFORMING HER THAT SHE IS STILL ON A HOLD AND THAT THE DECISION FOR HER TO LEAVE IS UP TO THE DOCTORS, SHE STARTED CRYING AND SAYING SHE HATES IT HERE. BP SLIGHTLY ELEVATED, BUT I GAVE 20 MG OF HYDRALAZINE. BED LOW AND LOCKED. CALL LIGHT WITHIN REACH.
--- NOTE | 2020-07-28 10:11 | NUR ---
Suicide Safety Plan completed with patient at 0730 today. Pt able to identify she was impulsive, and had not been planning an OD. Denied SI currently, and wants to re-engage in mental health treatment with [facility] and med provider at [facility]. Will also explore AA meetings. Ptient agreed to interventions of moving meds to have them less accessible, or to have her assist. Case Management notified for DC planning to assist patient in re-connecting with [facility] and [facility] for f/u mental health treatment, and also [facility] intensive outpatient treatment. Patient reports will investigate women's AA group to attend. Carlton Singh M.Ed., [facility]
[2020-07-28] MEDS ORDERED: Prozac20 MG PO (13:29)
[2020-07-28] MEDS ORDERED: LAMOTRIGINE ODT50 MG PO (13:31)
[2020-07-28] MEDS ORDERED: METO50 PO (13:32)
== END 2020-07-28 13:50 | disposition home or self-care (01) | DRG 918 ==
LOC: ER 20:37 → ICUW 20:38
PROVIDERS: Internal Medicine; Physician Assistant; ADMIT Internal Medicine
DX: T43.592A Poisoning by other antipsychotics and neuroleptics, intentional self-harm, initial encounter (principal); F10.239 Alcohol dependence with withdrawal, unspecified; F31.81 Bipolar II disorder; I50.30 Unspecified diastolic (congestive) heart failure; T44.6X2A Poisoning by alpha-adrenoreceptor antagonists, intentional self-harm, initial encounter; R82.81 Pyuria; E87.6 Hypokalemia; G43.909 Migraine, unspecified, not intractable, without status migrainosus; G44.89 Other headache syndrome; K21.9 Gastro-esophageal reflux disease without esophagitis; J44.9 Chronic obstructive pulmonary disease, unspecified; E03.9 Hypothyroidism, unspecified; F19.10 Other psychoactive substance abuse, uncomplicated; E66.9 Obesity, unspecified; F17.290 Nicotine dependence, other tobacco product, uncomplicated; E78.5 Hyperlipidemia, unspecified; I11.0 Hypertensive heart disease with heart failure; Z78.1 Physical restraint status; Z68.31 Body mass index [BMI] 31.0-31.9, adult
CPT/HCPCS: 36415; 51702; 80053; 81001; 83735; 84132; 84443; 85025; 87086; 93005; 93010; 96365; 96366; 96367; 99285-25; A9270; A9270-GY; C9113; G0480; J0360; J0696; J1650; J2060; J2405; J3411; J3475; J3480; J7030; J7042; J7050; Q0177

== ENCOUNTER 2020-08-12 11:13 | Emergency (ER) | payer OTHER ==
[~2020-08-12 11:13] MED LIST changes: +LAMOTRIGINE ODT50 MG PO; +METO50 PO; +Prozac20 MG PO
[2020-08-15] MEDS ORDERED: POTCHL20ER PO (05:39)
[2020-08-15] MEDS ORDERED: AMLO5 PO (05:40)
[2020-08-15] MEDS ORDERED: CLON.1 PO (05:40)
[2020-08-15] MEDS ORDERED: HYDR10 PO (05:40)
[2020-08-15] MEDS ORDERED: Buspirone HCl30 MG PO (05:41)
[2020-08-15] MEDS ORDERED: Alprazolam1 MG PO (05:41)
[2020-08-15] MEDS ORDERED: HYDCHL25 PO (05:41)
[2020-08-15] MEDS ORDERED: OLANZAPINE20 M2 PO (05:41)
[2020-08-15] MEDS ORDERED: FISH OIL 1,2001 EAC7 PO (05:42)
[2020-08-15] MEDS ORDERED: NEURONTIN300 MG PO (05:42)
[2020-08-15] MEDS ORDERED: VENLAFAXINE HC225 MG PO (05:43)
[2020-08-15] MEDS ORDERED: Hydroxyzine HCl50 MG (05:43)
[2020-08-15] MEDS ORDERED: MAGNESIUM OXID400 M3 PO (05:43)
[2020-08-15] MEDS ORDERED: Ventolin/Prove6.7 GM INH (05:44)
[2020-08-15] MEDS ORDERED: BUTALB-ACETAMI1 EAC5 PO (05:44)
[2020-08-15] MEDS ORDERED: TRAM50 PO (06:53)
[2020-08-15] MEDS ORDERED: IBUP800 PO (06:53)
[2020-08-15] MEDS ORDERED: CRUTCH2 XX (06:54)
== END 2020-08-12 11:27 | disposition left against medical advice (07) ==
LOC: ER 11:13
DX: Z53.21 Procedure and treatment not carried out due to patient leaving prior to being seen by health care provider (principal)

== ENCOUNTER 2020-08-16 07:53 | Emergency (ER) | payer OTHER ==
[~2020-08-16] VITALS: Ht 165.1 cm; Wt 90.7 kg
[~2020-08-16 07:53] MED LIST changes: +Alprazolam1 MG PO; +Buspirone HCl30 MG PO; +CRUTCH2 XX; +FISH OIL 1,2001 EAC7 PO; +HYDR10 PO; +Hydroxyzine HCl50 MG; +MAGNESIUM OXID400 M3 PO; +OLANZAPINE20 M2 PO; +TRAM50 PO; +VENLAFAXINE HC225 MG PO; +Ventolin/Prove6.7 GM INH
[2020-08-16] MEDS ORDERED: Norco 5-325 Ta1 EACH PO (09:53)
== END 2020-08-16 10:05 | disposition home or self-care (01) ==
LOC: ER 07:53
DX: S93.401A Sprain of unspecified ligament of right ankle, initial encounter (principal); F31.9 Bipolar disorder, unspecified; E78.5 Hyperlipidemia, unspecified; I10 Essential (primary) hypertension; E03.9 Hypothyroidism, unspecified; Z88.0 Allergy status to penicillin; Z88.1 Allergy status to other antibiotic agents; Z79.899 Other long term (current) drug therapy; Z88.2 Allergy status to sulfonamides; X50.1XXA Overexertion from prolonged static or awkward postures, initial encounter
CPT/HCPCS: 73630; 99283-25

== ENCOUNTER 2020-09-02 16:01 | Emergency (ER) | payer OTHER ==
[~2020-09-02] VITALS: Ht 165.1 cm; Wt 95.2 kg
[~2020-09-02 16:01] MED LIST changes: +Norco 5-325 Ta1 EACH PO
== END 2020-09-02 18:01 | disposition home or self-care (01) ==
LOC: ER 16:01
DX: S81.812A Laceration without foreign body, left lower leg, initial encounter (principal); F31.9 Bipolar disorder, unspecified; E78.5 Hyperlipidemia, unspecified; E03.9 Hypothyroidism, unspecified; I10 Essential (primary) hypertension; F17.290 Nicotine dependence, other tobacco product, uncomplicated; Z23 Encounter for immunization; Z87.442 Personal history of urinary calculi; Z79.899 Other long term (current) drug therapy; W27.2XXA Contact with scissors, initial encounter
CPT/HCPCS: 12032; 90471; 90714; 99282-25

== ENCOUNTER → 2021-09-27 | Outpatient (CLI) | payer OTHER ==
[~2021-09-27] MED LIST changes: +CEPH500 PO
== END | disposition home or self-care (01) ==
LOC: LAB SHORT 18:45
DX: L08.9 Local infection of the skin and subcutaneous tissue, unspecified (principal)
CPT/HCPCS: 87070; 87077; 87186; 87205

== ENCOUNTER 2022-09-15 10:26 | Inpatient (IN) | payer OTHER ==
[~2022-09-15] VITALS: Ht 165.1 cm; Wt 85.2 kg
[~2022-09-15 10:26] MED LIST changes: +CITALOPRAM HBR20 M8
[2022-09-15 11:13] LABS: BASOPHILS ABSOLUTE AUTO 0.13 K/mm3 (0.00-0.23); BASOPHILS PERCENT AUTO 1 % (0-2); EOSINOPHILS PERCENT AUTO 0 % (0-6); Hematocrit 49.2 % (33.0-51.0); Hemoglobin 15.5 g/dL (11.5-16.0); IMMATURE GRAN ABSOLUTE AUTO 0.19 K/mm3 (0.00-0.10); IMMATURE GRAN PERCENT AUTO 1 % (0-1); LYMPHOCYTES ABSOLUTE AUTO 4.91 K/mm3 (0.84-5.20); LYMPHOCYTES PERCENT AUTO 27 % (21-46); MONOCYTES PERCENT AUTO 4 % (4-13); Mean Corpuscular HGB 30.1 pg (26.0-34.0); Mean Corpuscular HGB Conc 31.5 g/dL (31.5-36.5); Mean Corpuscular Volume 96 fL (80-100); Mean Platelet Volume 12.7 fL (9.1-12.4); NEUTROPHILS ABSOLUTE AUTO 12.47 K/mm3 (1.96-9.15); NEUTROPHILS PERCENT AUTO 68 % (41-73); Platelet Count 394 K/mm3 (150-400); RDW Coefficient Variation 13.3 % (11.7-14.2); RDW Standard Deviation 47.3 fL (35.1-46.3); Red Blood Cell Count 5.15 M/mm3 (3.80-5.20)
[2022-09-15 12:52] LABS: Magnesium, Blood 2.8 mg/dL (1.6-2.4)
[2022-09-15 12:59] LABS: Albumin, Blood 4.1 g/dL (3.4-5.0); Albumin/Globulin Ratio 0.9 (0.8-1.8); Bilirubin, Total 0.6 mg/dL (0.1-1.0); Bun/Creatinine Ratio 15.3 (12.0-20.0); Calcium, Blood 9.8 mg/dL (8.5-10.1); Creatinine, Blood 1.24 mg/dL (0.40-1.00); Globulin, Blood 4.8 g/dL (2.2-4.0); Potassium, Blood 5.2 mmol/L (3.5-5.5); Total Protein, Blood 8.9 g/dL (6.4-8.2)
[2022-09-15 14:25] LABS: Base Excess Venous -30.6 mmol/L; Bicarbonate Venous 5.3 mmol/L (24.0-30.0); pH Blood Venous 6.84 (7.34-7.37)
[2022-09-15 15:21] LABS: Triglycerides 2120 mg/dL (30-160)
[2022-09-15 15:48] LABS: Source, Urine Clean Catch
[2022-09-15 15:51] LABS: Glucose, Blood 728 mg/dL (70-99)
[2022-09-15 15:54] LABS: Appearance, Urine Clear (Clear); Bilirubin, Urine Neg (Neg); Blood, Urine 3+ (Neg); Color, Urine Yellow (P-Yellow); Glucose Qualitative, Urine 4+ (Neg); Ketones, Urine 4+ (Neg); Leukocyte Esterase, Urine 1+ (Neg); Nitrite, Urine Neg (Neg); Protein, Urine 3+ (Neg); Specific Gravity, Urine 1.015 (1.003-1.022); Urobilinogen, Urine NORM (Normal)
[2022-09-15 16:09] LABS: Bacteria Mod /hpf; Hyaline Casts 0-2 /lpf (0-2); Squamous Epithelial Cells Mod /hpf (Few); Yeast/Fungi Urine Rare /hpf
[2022-09-15 16:11] LABS: SARS-Cov-2 (COVID-19) PCR, MMC NEGATIVE (NEGATIVE)
[2022-09-15 16:23] LABS: U Amphetamine Screen Not Detected; U Barbituate Screen Not Detected; U Benzodiazapine Screen Not Detected; U Buprenorphine Screen Not Detected; U Cannabinoids Screen DETECTED; U Cocaine Screen Not Detected; U Methadone Screen Not Detected; U Methamphetamine Screen Not Detected; U Opiates Screen DETECTED; U Oxycodone Screen Not Detected; U Phencyclidine Screen Not Detected; U Propoxyphene Screen Not Detected
[2022-09-15 16:25] LABS: Base Excess Venous -29.2 mmol/L; PCO2 Venous 21.3 mmHg (38-42); pH Blood Venous 6.88 (7.34-7.37)
[2022-09-15 16:46] LABS: Bun/Creatinine Ratio 17.9 (12.0-20.0); Calcium, Blood 8.2 mg/dL (8.5-10.1); Creatinine, Blood 1.06 mg/dL (0.40-1.00); Potassium, Blood 5.2 mmol/L (3.5-5.5)
[2022-09-15 17:45] LABS: Glucose, Blood 482 mg/dL (70-99)
--- NOTE | 2022-09-15 18:31 | NUR ---
SUMMARY: POLLO ARRIVED FROM THE EMERGENCY DEPT JUST AFTER 1700, SHE IS A&O, COOPERATIVE AND HELPFUL IN ANSWERING QUESTIONS TO COMPLETE HER ADMISSION HISTORY AND ASSE- SSMENT. SHE ARRIVES WITH PIV IN RIGHT FA AND ONE IN LEFT AC. LR @ 350 BEGAN PER ORDER AND INSULIN GTT AT 4U/HR. INITIAL CHEM BG IS READING HI AND LAB COMES TO DRAW, RETURNS WITH 482. INSULIN STAYS @ 4U, R/T IV ACCESS BEING MADE FOR EASIER ACCESS TO LAB DRAWS, CHEM BG'S AND IV FLUIDS. CHARGE RNS IN ROOM DOING THE IV. PT IS NAUSEATED, IS PAINFUL TO THE RIGHT KNEE WHICH IS SCHEDULED FOR REPLACEMENT NEXT MONTH. SHE IS MEDICATED FOR PAIN AND NAUSEA. LEFT PIV BEGINS TO BE POSITIONAL AND LINES ARE SWITCHED TO RIGHT FOREARM. PT STATES SHE HAS NEVER FELT LIKE SHE DID TODAY, SHE HAS BEEN HAVING INCREASED THIRST, [place], UNINTENTIONAL WEIGHT LOSS OVER THE LAST MONTH. SHE STATES SHE HAS NEVER HAD AN ISSUE WITH HER BLOOD SUGARS BEFORE. IS SURPRISED TO LEARN OF THE DIAGNOSIS. SHE RECENTLY QUIT SMOKING (IN FEBRUARY) SO THAT SHE COULD HAVE HER SURGERY. SHE ADMITS TO USING A VAPE BUT DENIES THE USE OF TOBACCO, ADMITS TO THC AND CBD USAGE. PT CONTINUES WITH THE PLACEMENT OF THE EXTENDED DWELL CATHETER. SEE ADMISSION FOR FURTHER INFORMATION.
--- NOTE | 2022-09-15 19:15 | NUR ---
ASSESSMENT/ASSUMED CARE PT SITTING UP IN BED WATCHING TV. C/O PAIN / TO RIGHT KNEE AND LEFT FOOT. PT TO HAVE SURGERY TO RIGHT KNEE IN SEPTEMBER. PT MED WITH FENTANYL 50 MCQ. PAIN DOWN TO 5/10. LUNGS CLEAR ON ROOMAIR. RESP EVEN AND NONLABORED. DENIES SOB OR COUGH. STATES,"I HAD SOB EARLIER TODAY, BUT IT IS MUCH BETTER NOW". HEART RATE TACHY 103. BP STABLE. NO EDEMA. MAEW. C/O TINGELING TO FEET, BUT NO NUMBNESS. BT+ ABD SOFT AND TENDER. C/O NAUSEA STATES,"THE NAUSEA IS MUCH BETTER AFTER THE MEDS THEY GAVE ME". PT TAKING ICE CHIPS. IV 18G TO LEFT AC FLUSHED WITHOUT DIFFICULTY, SITE CLEAR. IV 18G TO RIGHT FOREARM WITH LR AT 350 ML/HR AND INSULIN GTT AT 2 UNITS/HR. SITE CLEAR. PT MOVING AND TURNING SELF IN BED.
--- NOTE | 2022-09-15 20:52 | NUR ---
NAUSEA PT C/O NAUSEA. TO EARLIER FOR REGLAN. CALL TO DR CAREY FOR ZOFRAN. ORDER OBTAINED
[2022-09-15 21:53] LABS: Bun/Creatinine Ratio 21.3 (12.0-20.0); Calcium, Blood 8.2 mg/dL (8.5-10.1); Creatinine, Blood 0.7 mg/dL (0.40-1.00); Potassium, Blood 4.8 mmol/L (3.5-5.5)
[2022-09-16 02:19] LABS: BASOPHILS ABSOLUTE AUTO 0.02 K/mm3 (0.00-0.23); BASOPHILS PERCENT AUTO 0 % (0-2); EOSINOPHILS PERCENT AUTO 0 % (0-6); Hematocrit 30.8 % (33.0-51.0); Hemoglobin 10.8 g/dL (11.5-16.0); IMMATURE GRAN ABSOLUTE AUTO 0.09 K/mm3 (0.00-0.10); IMMATURE GRAN PERCENT AUTO 1 % (0-1); LYMPHOCYTES ABSOLUTE AUTO 2.21 K/mm3 (0.84-5.20); LYMPHOCYTES PERCENT AUTO 15 % (21-46); MONOCYTES ABSOLUTE AUTO 0.62 K/mm3 (0.16-1.47); MONOCYTES PERCENT AUTO 4 % (4-13); Mean Corpuscular HGB 30.4 pg (26.0-34.0); Mean Corpuscular HGB Conc 35.1 g/dL (31.5-36.5); Mean Platelet Volume 11.9 fL (9.1-12.4); NEUTROPHILS ABSOLUTE AUTO 11.57 K/mm3 (1.96-9.15); NEUTROPHILS PERCENT AUTO 80 % (41-73); Platelet Count 245 K/mm3 (150-400); RDW Coefficient Variation 13.2 % (11.7-14.2); RDW Standard Deviation 41.9 fL (35.1-46.3); Red Blood Cell Count 3.55 M/mm3 (3.80-5.20); White Blood Cell Count 14.51 K/mm3 (4.00-11.30)
[2022-09-16 02:21] LABS: Mean Corpuscular Volume 87 fL (80-100)
[2022-09-16 02:34] LABS: Bun/Creatinine Ratio 18.9 (12.0-20.0); Calcium, Blood 8.5 mg/dL (8.5-10.1); Creatinine, Blood 0.69 mg/dL (0.40-1.00); Potassium, Blood 4.1 mmol/L (3.5-5.5)
--- NOTE | 2022-09-16 06:08 | NUR ---
SHIFT SUMMARY PT RESTING QUIETLY. MED TWICE DURING THE NIGHT WITH FENTANYL FOR RIGHT KNEE AND LEFT FOOT PAIN WITH GOOD RESULTS. PT UP TO BATHROOM WITH STANDBY ASSIST FOR LINES. VOIDING CLEAR DARK YELLOW URINE. HEART RATE CONT TACHY 110-120'S. BP STABLE. PT MOVING AND TURNING SELF IN BED. CONT NPO. POWER GLIDE PLACED TO LEFT UPPER ARM. IV FLUID CHANGED TO D5 1/2 AT 150 ML/HR AFTER BLOOD GLUCOSE DOWN TO 250. INSULIN GTT CURRENTLY AT 7 UNITS/HR. CONT TO CHECK BLOOD GLUCOSE Q1HR. AWAITING BMP. REPORT TO ON COMING NURSE
[2022-09-16 06:53] LABS: Bun/Creatinine Ratio 15.1 (12.0-20.0); Calcium, Blood 8.9 mg/dL (8.5-10.1); Creatinine, Blood 0.66 mg/dL (0.40-1.00); Potassium, Blood 3.5 mmol/L (3.5-5.5)
--- NOTE | 2022-09-16 07:00 | NUR ---
Assumed care of pt at 0700 Report recieved from offgoing RN. Pt A/O, resting well, medicated for knee pain x1 with good relief. FSBG <200, D5 1/2NS infusing at 150ml/hr. Insulin drip infusing at 6 units/hr. Pt NPO, has mild nausea, medicated x1 with good relief. OOB with standby assist. RN CM to continue to monitor.
[2022-09-16 09:13] LABS: Potassium, Blood 3.4 mmol/L (3.5-5.5)
[2022-09-16 13:36] LABS: Potassium, Blood 3.4 mmol/L (3.5-5.5)
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
[2022-09-16 17:26] LABS: Potassium, Blood 3.2 mmol/L (3.5-5.5)
--- NOTE | 2022-09-16 18:13 | NUR ---
END OF SHIFT SUMMARY PT ALERT AND ORIENTED. MILD NAUSEA, DECLINED MEDICATION. PAIN IN RIGHT KNEE IS CHRONIC, PT MEDICATED WITH FENTANYL IV APPROX EVERY 2 HOURS THIS SHIFT. NOTIFIED HOSPITALIST OF RECENT CHEMISTRY, PT IS TO REMAIN ON INSULIN DRIP AND CURRENT IV FLUID UNTIL CO2 AT LEAST 20, MD WILL RE-EVLAUATE AT THAT TIME. POTASSIUM 3.2 AFTER 20MEQ IV GIVEN, ORDER RECEIVED TO GIVE 40MEQ PO. PT AMBULATES TO THE COMMODE WITH STANDBY ASSIST. VOIDS WITHOUT DIFFICULTY, 1 BM THIS SHIFT. PT OFFERED BATH, WANTED TO WAIT UNTIL NEXT PAIN MEDICATION, WILL SET UP BATH FOR PT AT THAT TIME. RN TO CONTINUE TO MONITOR.
--- NOTE | 2022-09-16 19:47 | NUR ---
ASSUMED CARE OF PT AT 1915. REPORT RECEIVED AT BEDSIDE. PT PRESENTS IN BED. ALERT AND ORIENTED. PLEASANT WITH CARE AND ASSESSMENT. NO DISTRESS AT THIS TIME. DISCUSSED PLAN FOR GLUCOSE MANAGEMENT WITH POTENTIAL TRANSITION OFF INSULIN DRIP WHICH IS CURRENTLY AT 5 UNITS PER HOUR. WILL REVIEW CHART AND PLAN OF CARE FOR THIS PT.
[2022-09-16 21:21] LABS: Potassium, Blood 3.2 mmol/L (3.5-5.5)
--- NOTE | 2022-09-16 23:00 | NUR ---
CALL MADE TO DR CAREY CONCERNING POTASSIUM LEVEL AT 3.2. ORDER RECEIVED TO ADD POTASSIUM TO IVG. NOW INFUSING D5 1/2NS WITH 20 MEQ K AT 150 PER HOUR. PT HAS BEEN ABLE TO GET UP TO TOILET WITH ONLY ASSIST WITH CORDS. VOIDS Q.S. HAS HAD ONE BM.
--- NOTE | 2022-09-17 02:58 | NUR ---
PT HAS COMPLAINTS OF RIGHT KNEE PAIN WHICH SHE STATES STARTS AT KNEE AND RADIATES DOWN HER LEG. ADDS THAT SHE HAS AN APPOINTMENT IN [place] THIS NEXT WEEK TO BEGIN PROCESS IN HAVING A KNEE REPLACEMENT. MEDICATED PT WITH 50 MCG'S FENTNANYL WITH GOOD RELIEF. PT STATES THAT SHE HAD BEEN TAKING OXYCODONE FOR KNEE PAIN AND HAD RECENTLY BEEN CHANGED TO NORCO. INSULIN DRIP CONTINUES AT 5 UNITS PER HOUR.
[2022-09-17 04:06] LABS: Hematocrit 29.3 % (33.0-51.0); Hemoglobin 9.9 g/dL (11.5-16.0); Mean Corpuscular HGB 29.7 pg (26.0-34.0); Mean Corpuscular HGB Conc 33.8 g/dL (31.5-36.5); Mean Corpuscular Volume 88 fL (80-100); Mean Platelet Volume 11.7 fL (9.1-12.4); Platelet Count 203 K/mm3 (150-400); RDW Standard Deviation 45.2 fL (35.1-46.3); Red Blood Cell Count 3.33 M/mm3 (3.80-5.20); White Blood Cell Count 8.37 K/mm3 (4.00-11.30)
[2022-09-17 04:25] LABS: Bun/Creatinine Ratio 11.2 (12.0-20.0); Calcium, Blood 9.1 mg/dL (8.5-10.1); Creatinine, Blood 0.54 mg/dL (0.40-1.00)
--- NOTE | 2022-09-17 05:16 | NUR ---
PT HAS CONTINUED ON INSULIN DRIP AT 5 UNITS PER HOUR. CALL WAS MADE TO DR TOREY GREGORIO WITH ANION GAP BEING CLOSED WITH C02 REMAINING AT 18. WILL CONTINUE INSULIN DRIP AT 5 UNITS AND RECHECK BMP AT 0800 THIS MORNING. POTASSIUM 3.0 THIS AM AND 40 MEQ POTASSIUM HAO ORDERED. WILL RUN AT 7 MEQ PER HOUR SECONDARY TO D5 1/2 NS WITH 20 K BEING 3 MEQ POTASSIUM PER HOUR. PT HAS BEEN ABLE TO GET UP TO TOILET TO VOID Q.S. HAS HAD ONE BM THIS NIGHT. MEDICATED WITH 50 MEQ FENTANYL PER PRN EMAR FOR COMPLAINT OF RIGHT KNEE PAIN. PT WAS PROVIDED ICE PACK TO HELP WITH PAIN MANAGEMENT. WILL CONTINUE TO MONITOR PT, AND WILL REPORT OFF TO ONCOMING RN.
--- NOTE | 2022-09-17 06:41 | NUR ---
HAVE DECREASED INSULIN DRIP FROM 5 UNITS PER HOUR TO 2 UNITS PER HOUR.
[2022-09-17 08:21] LABS: Bun/Creatinine Ratio 10.7 (12.0-20.0); Calcium, Blood 8.7 mg/dL (8.5-10.1); Creatinine, Blood 0.56 mg/dL (0.40-1.00); Potassium, Blood 3.4 mmol/L (3.5-5.5)
--- NOTE | 2022-09-17 09:22 | NUR ---
CARE ASSUMED OF PT AT 0700, BEDSIDE REPORT TAKEN. INSULIN GTT AT 2UNITS/HR. D51/2NS W 20MEQ K+ INFUSING AT 150CC/HR. KCL 40MEQ INFUSING. PT C/O PAIN 06/05 TO RIGHT KNEE; CHRONIC PAIN, PT IS SCHEDULED W [facility] FOR TOTAL KNEE REPLACEMENT. ICE TO KNEE, KNEE ELEVATED. PT DENIES ABD PAIN OR NAUSEA THIS AM. PT STATES SHE IS HUNGRY AND REQUEST FOOD. PT NPO AT THIS TIME. PT DID BECOME NAUSEATED AFTER LAST DOSE OF FENT; PT BELIEVES IT IS D/T PAIN MEDS. FENT DC'D AND CHANGED TO NORCO PER DR BADILLO. ZOFRAN GIVEN FOR NAUSEA.
--- NOTE | 2022-09-17 09:38 | NUR ---
DR BADILLO IN TO SEE PT, FULL UPDATE GIVEN. CHEM 8 TO BE REPEATED AT 1200
[2022-09-17 12:34] LABS: Bun/Creatinine Ratio 8.3 (12.0-20.0); Calcium, Blood 8.6 mg/dL (8.5-10.1); Creatinine, Blood 0.6 mg/dL (0.40-1.00); Potassium, Blood 3.4 mmol/L (3.5-5.5)
--- NOTE | 2022-09-17 12:53 | NUR ---
PT W DRY HEAVES. REGLAN GIVEN. PT REMAINS NPO. PT TEARFUL; OVERWHELMED WITH UPCOMING KNEE SURGERY, KNEE PAIN, AND NEW DM DX. PT COMFORTED/COUNSELLED.
--- NOTE | 2022-09-17 16:01 | NUR ---
20UNITS LONG ACTING GIVEN AT 1500. INSULIN AND IV FLUIDS STOPPED AT [address] BADILLO.
[2022-09-17 16:52] LABS: Potassium, Blood 3.2 mmol/L (3.5-5.5)
[2022-09-17 21:25] LABS: Potassium, Blood 3.3 mmol/L (3.5-5.5)
[2022-09-18 03:33] LABS: Hematocrit 30.1 % (33.0-51.0); Hemoglobin 10.3 g/dL (11.5-16.0); Mean Corpuscular HGB 30.6 pg (26.0-34.0); Mean Corpuscular HGB Conc 34.2 g/dL (31.5-36.5); Mean Corpuscular Volume 89 fL (80-100); Mean Platelet Volume 11.9 fL (9.1-12.4); Platelet Count 215 K/mm3 (150-400); RDW Coefficient Variation 14.5 % (11.7-14.2); RDW Standard Deviation 46.9 fL (35.1-46.3); Red Blood Cell Count 3.37 M/mm3 (3.80-5.20)
[2022-09-18 03:53] LABS: Bun/Creatinine Ratio 6.5 (12.0-20.0); Calcium, Blood 8.6 mg/dL (8.5-10.1); Creatinine, Blood 0.62 mg/dL (0.40-1.00); Potassium, Blood 3.7 mmol/L (3.5-5.5)
--- NOTE | 2022-09-18 05:48 | NUR ---
SHIFT SUMMERY PT IS ALERT AND ORIENTED X 4, COMPLIANT W/CARE. VSS W/NO ACUTE EVENTS OVERNIGHT. AFEBRILE.
--- NOTE | 2022-09-18 08:05 | NUR ---
CARE OF PT ASSUMED AT 0700. PT AWAKE AND ALERT. C/O PAIN 5/10 TO RIGHT KNEE. R KNEE LEVATED, NORCO GIVEN. PT DENIES NAUSEA/ABD PAIN. TAMANNA PO. BS IN MID TO HIGH 200'S. LONG ACTING INCREASED. CONTINUING/ONGOING DIABETIC EDUCATION THIS AM.
--- NOTE | 2022-09-18 09:23 | NUR ---
DR BADILLO IN TO SEE PT. POSSIBLE DC TO HOME LATER THIS AFTERNOON. PT NOW MED NO TELE STATUS.
[2022-09-18] MEDS ORDERED: INSULIN GL100 UNIT/2 SC (12:57)
[2022-09-18] MEDS ORDERED: HUMALOG KW100 UNIT/1 SC (12:59)
--- NOTE | 2022-09-18 13:23 | NUR ---
PT FELT COMFORTABLE BEING DC'D HOME AND REQUESTED TO BE DC'D HOME. PT DISCHARGED HOME IN STABLE CONDITION; PT'S IS DRIVING PT HOME. NEW RX FAXED TO [facility] PER PT REQUEST. VERBAL AND WRITTEN DC INFORMATION GIVEN TO PT W CLEAR UNDERSTANDING. GLUCOMETER SENT HOME W PT. RX FOR ADDITIONAL STRIPS AND LANCETS SENT HOME. PT HAS FOLLOW UP APPOINTMENT SCHEDULED W HER PCP IN LESS THAN ONE WEEK.
== END 2022-09-18 13:30 | disposition home or self-care (01) | DRG 638 ==
LOC: ER 10:26 → ICUE 14:53 → ICUW 14:53 → ICUE 17:04
PROVIDERS: Internal Medicine; Nurse Practitioner Acute Care; Physician Assistant; Student in an Organized Health Care Education/Training Program; ADMIT Internal Medicine
DX: E11.10 Type 2 diabetes mellitus with ketoacidosis without coma (principal); E87.1 Hypo-osmolality and hyponatremia; F11.20 Opioid dependence, uncomplicated; N17.9 Acute kidney failure, unspecified; R65.10 Systemic inflammatory response syndrome (SIRS) of non-infectious origin without acute organ dysfunction; F31.9 Bipolar disorder, unspecified; I10 Essential (primary) hypertension; E87.6 Hypokalemia; G89.29 Other chronic pain; Z20.822 Contact with and (suspected) exposure to COVID-19; G43.909 Migraine, unspecified, not intractable, without status migrainosus; E78.00 Pure hypercholesterolemia, unspecified; E03.9 Hypothyroidism, unspecified; E86.0 Dehydration; E11.65 Type 2 diabetes mellitus with hyperglycemia; F17.210 Nicotine dependence, cigarettes, uncomplicated; Z98.890 Other specified postprocedural states; Z88.1 Allergy status to other antibiotic agents; Z79.899 Other long term (current) drug therapy; Z87.442 Personal history of urinary calculi; Z88.2 Allergy status to sulfonamides; Z90.49 Acquired absence of other specified parts of digestive tract; Z90.710 Acquired absence of both cervix and uterus; Z90.721 Acquired absence of ovaries, unilateral
CPT/HCPCS: 36415; 71045; 74177; 80048; 80051; 80053; 81001; 81025; 82010; 82803; 82947; 83036; 83690; 83735; 84478; 84681; 84703; 85025; 85027; 87077; 87086; 87186; 93005; 93010; 94760; 96361; 96374; 96375; 96376; 99285-25; A9270; C1751; J1650; J1815; J1885; J2270; J2405; J2765; J3010; J3480; J7030; J7042; J7050; J7120; Q9967; U0004

== ENCOUNTER 2024-04-10 19:27 | Emergency (ER) | payer OTHER ==
[~2024-04-10] VITALS: Ht 165.1 cm; Wt 79.4 kg
[~2024-04-10 19:27] MED LIST changes: +ALOGLIPTIN12.5 M1 PO; +AMLODIPINE BESY10 MG PO; +HUMALOG KW100 UNIT/1 SC; +INSULIN GL100 UNIT/2 SC; +LOSA25 PO
[2024-04-10 23:54] VITALS: BP 135/84
[2024-04-10] MEDS ORDERED: OLANZapine 10 MG Tab PO ONE (23:55)
[2024-04-10] MEDS ORDERED: OLAN20 MM (23:59)
== END 2024-04-11 00:04 | disposition home or self-care (01) ==
LOC: ER 19:27
DX: Z76.0 Encounter for issue of repeat prescription (principal); F41.9 Anxiety disorder, unspecified; Z88.2 Allergy status to sulfonamides; Z88.1 Allergy status to other antibiotic agents; Z79.899 Other long term (current) drug therapy; Z79.4 Long term (current) use of insulin; G43.909 Migraine, unspecified, not intractable, without status migrainosus; I10 Essential (primary) hypertension; E03.9 Hypothyroidism, unspecified; F17.200 Nicotine dependence, unspecified, uncomplicated; F17.290 Nicotine dependence, other tobacco product, uncomplicated
CPT/HCPCS: 93005; 93010; 99283-25; A9270

== ENCOUNTER 2024-11-25 12:33 | Emergency (ER) | payer OTHER ==
[~2024-11-25] VITALS: Ht 165.1 cm; Wt 86.2 kg
[~2024-11-25 12:33] MED LIST changes: +OLAN20 MM
[2024-11-25] MEDS ORDERED: Ondansetron HCl 2 MG / ML 2ML Vial IV ONE (12:40)
[2024-11-25] MEDS ORDERED: NS 1,000 ML IV SCH (12:40)
[2024-11-25 13:15] LABS: BASOPHILS ABSOLUTE AUTO 0.04 K/mm3 (0.00-0.23); BASOPHILS PERCENT AUTO 1 % (0-2); EOSINOPHILS ABSOLUTE AUTO 0.09 K/mm3 (0.00-0.68); EOSINOPHILS PERCENT AUTO 1 % (0-6); Hematocrit 41.6 % (33.0-51.0); Hemoglobin 14.2 g/dL (11.5-16.0); IMMATURE GRAN ABSOLUTE AUTO 0.02 K/mm3 (0.00-0.10); IMMATURE GRAN PERCENT AUTO 0 % (0-1); LYMPHOCYTES PERCENT AUTO 30 % (21-46); MONOCYTES ABSOLUTE AUTO 0.34 K/mm3 (0.16-1.47); MONOCYTES PERCENT AUTO 4 % (4-13); Mean Corpuscular HGB Conc 34.1 g/dL (31.5-36.5); Mean Corpuscular Volume 82 fL (80-100); Mean Platelet Volume 11.1 fL (9.1-12.4); NEUTROPHILS ABSOLUTE AUTO 5.36 K/mm3 (1.96-9.15); NEUTROPHILS PERCENT AUTO 64 % (41-73); Platelet Count 306 K/mm3 (150-400); RDW Coefficient Variation 14.4 % (11.7-14.2); RDW Standard Deviation 42.3 fL (35.1-46.3); Red Blood Cell Count 5.07 M/mm3 (3.80-5.20); White Blood Cell Count 8.35 K/mm3 (4.00-11.30)
[2024-11-25 13:19] LABS: CORONAVIRUS COVID-19 AG Negative (NEGATIVE); INFLUENZA A AG Negative (NEGATIVE); INFLUENZA B AG Negative (NEGATIVE)
[2024-11-25 13:46] LABS: Alanine Aminotransfer (ALT/SGP 73 U/L (12-78); Albumin, Blood 3.7 g/dL (3.4-5.0); Alk Phos 96 U/L (50-136); Anion Gap 11 mmol/L (3-11); Aspartate Aminotrans (AST/SGOT 64 U/L (12-37); Bilirubin, Total 0.5 mg/dL (0.1-1.0); Blood Urea Nitrogen 13 mg/dL (8-24); Bun/Creatinine Ratio 18.1 (12.0-20.0); CO2, Blood 24 mmol/L (21-32); Calcium, Blood 9.5 mg/dL (8.5-10.1); Chloride, Blood 103 mmol/L (98-108); Creatinine, Blood 0.72 mg/dL (0.40-1.00); Ethanol (Alcohol), Blood, Med <3 mg/dL; Globulin, Blood 3.8 g/dL (2.2-4.0); Glomerular Filtration Rate 102 (60-); Glucose, Blood 110 mg/dL (70-99); Magnesium, Blood 1.9 mg/dL (1.6-2.4); Potassium, Blood 2.9 mmol/L (3.5-5.5); Sodium, Blood 135 mmol/L (136-145); Total Protein, Blood 7.5 g/dL (6.4-8.2)
[2024-11-25] MEDS ORDERED: Potassium Chloride 20 MEQ TabCR PO ONE (16:25)
[2024-11-25] MEDS ORDERED: RX Prepack Albuterol 1 PREPACK/6.7 GM INH UD ONE (16:25)
[2024-11-25] MEDS ORDERED: ChlordiazePOXIDE 25 MG Cap PO ONE (16:25)
[2024-11-25] MEDS ORDERED: PredniSONE 20 MG Tab PO ONE (16:30)
[2024-11-25] MEDS ORDERED: PROM25 PO (16:33)
[2024-11-25] MEDS ORDERED: METPRE4DP PO (16:33)
[2024-11-25] MEDS ORDERED: Ondansetron HCl 2 MG / ML 2ML Vial ONE (16:33)
[2024-11-25] MEDS ORDERED: CHLO25 PO (16:33)
[2024-11-25] MEDS ORDERED: POTCHL20ER PO (16:33)
[2024-11-25 16:34] VITALS: BP 159/100
== END 2024-11-25 16:44 | disposition home or self-care (01) ==
LOC: ER 12:33
PROVIDERS: Student in an Organized Health Care Education/Training Program
DX: J45.901 Unspecified asthma with (acute) exacerbation (principal); J98.8 Other specified respiratory disorders; F10.939 Alcohol use, unspecified with withdrawal, unspecified; E87.6 Hypokalemia; I11.0 Hypertensive heart disease with heart failure; I50.9 Heart failure, unspecified; J44.9 Chronic obstructive pulmonary disease, unspecified; F43.10 Post-traumatic stress disorder, unspecified; Z88.2 Allergy status to sulfonamides; Z88.1 Allergy status to other antibiotic agents; Z79.4 Long term (current) use of insulin; Z79.899 Other long term (current) drug therapy
CPT/HCPCS: 71046; 80053; 80320; 83735; 85025; 87428-QW; 93005; 93010; 96374; 99284-25; A9270; J2405; J7512

== ENCOUNTER 2024-12-22 22:06 | Emergency (ER) | payer OTHER ==
[~2024-12-22] VITALS: Ht 165.1 cm; Wt 81.7 kg
[~2024-12-22 22:06] MED LIST changes: +CHLO25 PO; +METPRE4DP PO
[2024-12-22] MEDS ORDERED: NS 1,000 ML IV ONE (22:12)
[2024-12-22] MEDS ORDERED: NS 1,000 ML IV SCH ×2 (22:15→23:10)
[2024-12-22 22:25] LABS: BASOPHILS ABSOLUTE AUTO 0.09 K/mm3 (0.00-0.23); BASOPHILS PERCENT AUTO 1 % (0-2); EOSINOPHILS PERCENT AUTO 1 % (0-6); Hematocrit 37.5 % (33.0-51.0); Hemoglobin 12.2 g/dL (11.5-16.0); IMMATURE GRAN ABSOLUTE AUTO 0.33 K/mm3 (0.00-0.10); IMMATURE GRAN PERCENT AUTO 2 % (0-1); LYMPHOCYTES ABSOLUTE AUTO 4.32 K/mm3 (0.84-5.20); LYMPHOCYTES PERCENT AUTO 25 % (21-46); MONOCYTES ABSOLUTE AUTO 0.22 K/mm3 (0.16-1.47); MONOCYTES PERCENT AUTO 1 % (4-13); Mean Corpuscular HGB Conc 32.5 g/dL (31.5-36.5); Mean Corpuscular Volume 86 fL (80-100); Mean Platelet Volume 12.8 fL (9.1-12.4); NEUTROPHILS ABSOLUTE AUTO 12.12 K/mm3 (1.96-9.15); NEUTROPHILS PERCENT AUTO 71 % (41-73); Platelet Count 280 K/mm3 (150-400); RDW Coefficient Variation 14.7 % (11.7-14.2); RDW Standard Deviation 47.1 fL (35.1-46.3); Red Blood Cell Count 4.35 M/mm3 (3.80-5.20); White Blood Cell Count 17.18 K/mm3 (4.00-11.30)
[2024-12-22 22:34] LABS: Base Excess Venous -19.1 mmol/L; Bicarbonate Venous 11.2 mmol/L (24.0-30.0)
[2024-12-22 22:35] LABS: PCO2 Venous 33.8 mmHg (38-42)
[2024-12-22 22:43] LABS: Acetaminophen, Random 2.7 ug/mL (10.0-30.0); Alanine Aminotransfer (ALT/SGP 28 U/L (12-78); Albumin, Blood 2.9 g/dL (3.4-5.0); Albumin/Globulin Ratio 0.9 (0.8-1.8); Alk Phos 73 U/L (50-136); Anion Gap 20 mmol/L (3-11); Aspartate Aminotrans (AST/SGOT 20 U/L (12-37); Bilirubin, Total 0.2 mg/dL (0.1-1.0); Blood Urea Nitrogen 13 mg/dL (8-24); CO2, Blood 11 mmol/L (21-32); Calcium, Blood 8.4 mg/dL (8.5-10.1); Chloride, Blood 112 mmol/L (98-108); Creatinine, Blood 1.85 mg/dL (0.40-1.00); Ethanol (Alcohol), Blood, Med <3 mg/dL; Globulin, Blood 3.1 g/dL (2.2-4.0); Glomerular Filtration Rate 33 (60-); Glucose, Blood 422 mg/dL (70-99); Magnesium, Blood 1.6 mg/dL (1.6-2.4); Potassium, Blood 5.2 mmol/L (3.5-5.5); Salicylate 2.6 mg/dL (2.8-20.0); Sodium, Blood 138 mmol/L (136-145)
[2024-12-22] MEDS ORDERED: Glucagon 1 MG/KIT VIAL IV ONE (23:00)
[2024-12-22] MEDS ORDERED: Insulin Human Regular 100 UNIT in NS 100 ML IV SCH (23:00)
[2024-12-22] MEDS ORDERED: Sodium Bicarb 8.4% 1 MEQ/ML 50 ML Vial IV ONE (23:05)
[2024-12-22] MEDS ORDERED: Insulin Regular 100 Unit/ML 1ML Dose IV ONE (23:20)
[2024-12-22] MEDS ORDERED: Dextrose 10% 500 ML IV SCH (23:30)
[2024-12-22] MEDS ORDERED: Sodium Chloride 0.45% 1,000 ML IV SCH (23:40)
[2024-12-22 23:48] LABS: Base Excess Venous -21.5 mmol/L; Bicarbonate Venous 9.6 mmol/L (24.0-30.0); PCO2 Venous 40.9 mmHg (38-42)
[2024-12-22 23:49] LABS: pH Blood Venous 6.99 (7.34-7.37)
[2024-12-22] MEDS ORDERED: Vasopressin 20 UNITS in NS 100 ML IV SCH (23:50)
[2024-12-22] MEDS ORDERED: METHYLENE BLUE IV ONE (23:50)
[2024-12-22] MEDS ORDERED: DEXTROSE 5% IV ONE (23:50)
[2024-12-22] MEDS ORDERED: Sodium Bicarb 8.4% Inj 100 MEQ in Sodium Chloride 0.45% 1,000 ML IV SCH (23:50)
[2024-12-23 00:23] LABS: Bun/Creatinine Ratio 7.1 (12.0-20.0); Creatinine, Blood 1.83 mg/dL (0.40-1.00); Potassium, Blood 5.5 mmol/L (3.5-5.5)
[2024-12-23 00:29] LABS: Calcium, Blood 10.8 mg/dL (8.5-10.1)
[2024-12-23 00:30] VITALS: BP 72/53
[2024-12-23] MEDS ORDERED: Etomidate 2MG / ML 10ML Vial IV ONE (05:36)
[2024-12-23] MEDS ORDERED: Rocuronium Bromide 10 MG/ML 5ML Injection IV ONE (05:36)
[2024-12-23] MEDS ORDERED: EPINEPhrine HCl 0.1 MG/ML 10ML SYR IV ONE (05:36)
[2024-12-23] MEDS ORDERED: Calcium Chloride 10% 10 ML SYR IV ONE (05:36)
[2024-12-23] MEDS ORDERED: Phenylephrine HCl 100 MCG/ML-NS 10MLSYR (1MG/10ML) IV ONE (05:36)
[2024-12-23] MEDS ORDERED: Sodium Bicarb 8.4% 50 mEq Syringe IV ONE (05:36)
== END 2024-12-23 00:45 | disposition short-term general hospital (02) ==
LOC: ER 22:06
PROVIDERS: Emergency Medicine; Internal Medicine
DX: T46.1X2A Poisoning by calcium-channel blockers, intentional self-harm, initial encounter (principal); R57.0 Cardiogenic shock; E87.20 Acidosis, unspecified; G43.909 Migraine, unspecified, not intractable, without status migrainosus; E03.9 Hypothyroidism, unspecified; E78.5 Hyperlipidemia, unspecified; I10 Essential (primary) hypertension; F17.200 Nicotine dependence, unspecified, uncomplicated; Z79.899 Other long term (current) drug therapy; Z79.4 Long term (current) use of insulin; Z88.2 Allergy status to sulfonamides; Z88.1 Allergy status to other antibiotic agents
CPT/HCPCS: 31500; 36556; 51702; 71045; 80048; 80053; 80320; 82330; 82803; 82947; 83735; 83880; 84484; 85025; 93005; 93010; 94002; 96365-59; 96368; 99285-25; C1751; G0480; J0171; J1610; J1815; J2371; J7030; J7060; Q9968